=== PATIENT | female | born 2000 | race Caucasian/White ===

== ENCOUNTER 2020-09-24 18:08 | Emergency (ER) | payer BC ==
[2020-09-24] MEDS ORDERED: Bacitracin Oint 1 GM U/D Packet TOP ONE ×2 (19:02→22:38)
[2020-09-24] MEDS ORDERED: Lidocaine 1% 30 ML SDV INJECT ONE ×2 (19:02→22:54)
--- NOTE | 2020-09-24 23:22 | EDM.PDOC ---
ED HPI GENERAL MEDICAL PROBLEM - General Chief Complaint: Laceration Stated Complaint: LEFT RING TOE CUT Time Seen by Provider: 09/24/20 22:45 Source of Information: Reports: Patient History Limitations: Reports: No Limitations - History of Present Illness INITIAL COMMENTS - FREE TEXT/NARRATIVE: left 4th toe, flap laceration , cut on something in [place] [employer]. 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 Musculoskeletal History: Reports: None Neurological History: Reports: Concussion Psychiatric History: Reports: None Endocrine/Metabolic History: Reports: None Hematologic History: Reports: None Immunologic History: Reports: None Oncologic (Cancer) History: Reports: None Dermatologic History: Reports: None - Infectious Disease History Infectious Disease History: Reports: None - Past Surgical History Head Surgeries/Procedures: Reports: None Female Surgical History: Reports: Breast Reduction Social & Family History - Tobacco Use Tobacco Use Status *Q: Never Tobacco User Second Hand Smoke Exposure: No - Caffeine Use Caffeine Use: Reports: Coffee, Soda - Recreational Drug Use Recreational Drug Use: No ED ROS GENERAL - Review of Systems Review Of Systems: Comprehensive ROS is negative, except as noted in HPI. ED EXAM, SKIN/RASH Exam: See Below Exam Limited By: No Limitations General Appearance: Alert, Mild Distress Eye Exam: Bilateral Eye: EOMI Throat/Mouth: Normal Oropharynx Head: Atraumatic, Normocephalic Respiratory/Chest: No Respiratory Distress, Normal Breath Sounds Cardiovascular: Regular Rate, Rhythm Neurological: Alert, Oriented Psychiatric: Normal Affect Skin: Wound/Incision (left 4th toev shape flap laceration) ED SKIN PROCEDURES - Laceration/Wound Repair Left Toe - Fourth Appearance: Superficial Distal NVT: Neuro & Vascular Intact Anesthetic Type: Local Local Anesthesia - Lidocaine (Xylocaine): 1% Plain Local Anesthetic Volume: 1cc Skin Prep: Chlorhexidine (Hibiciens), Saline Closed with: Sutures Lac/Wound length In cm: 1 (v shaped flap) Suture Size: 5-0 # of Sutures: 2 Course - Vital Signs Last Recorded V/S: Last Vital Signs Temp 97.7 F 09/24/20 18:38 Pulse 94 09/24/20 18:38 Resp 16 09/24/20 18:38 BP 122/72 09/24/20 18:38 Pulse Ox 99 09/24/20 18:38 - Orders/Labs/Meds Meds: Medications Discontinued Medications Generic Name Dose Route Start Last Admin Trade Name Katia PRN Reason Stop Dose Admin Bacitracin 1 dose 09/24/20 19:02 09/24/20 23:42 Bacitracin Oint 1 Gm U/D Packet TOP 09/24/20 19:03 Not Given ONETIME ONE Bacitracin 1 dose 09/24/20 22:38 09/24/20 23:42 Bacitracin Oint 1 Gm U/D Packet TOP 09/24/20 22:39 1 dose ONETIME ONE Administration Lidocaine HCl 30 ml 09/24/20 19:02 09/24/20 23:42 Lidocaine 1% 30 Ml Sdv INJECT 09/24/20 19:03 Not Given ONETIME ONE Lidocaine HCl 30 ml 09/24/20 22:54 09/24/20 23:42 Lidocaine 1% 30 Ml Sdv INJECT 09/24/20 22:55 30 ml ONETIME ONE Administration Departure - Departure Time of Disposition: 23:20 Disposition: Home, Self-Care 01 Condition: Good Clinical Impression: Broken skin - Discharge Information Instructions: Sutures, [place], or Adhesive Wound Closure, [id number] Forms: ED Department Discharge Additional Instructions: keep clean and dry cover with light dressing over counter antibiotic ointment daily sutures out 7-10 days follow up sooner if redness , drainage or swelling Sepsis Event Note (ED) - Evaluation Sepsis Screening Result: No Definite Risk
== END 2020-09-24 23:42 | disposition home or self-care (01) ==
LOC: DL.ED 18:08
DX: S91.115A Laceration without foreign body of left lesser toe(s) without damage to nail, initial encounter (principal); Z88.0 Allergy status to penicillin; W26.8XXA Contact with other sharp object(s), not elsewhere classified, initial encounter
CPT/HCPCS: 12001; 99282; 99282-25